=== PATIENT | female | born 1985 | race Caucasian/White ===

== ENCOUNTER 2017-11-05 19:52 | Emergency (ER) | payer SELFPAY ==
[2017-11-05 20:20] VITALS: TEMP 98.7
[2017-11-05] MEDS ORDERED: LACTATED RINGERS 1,000 ML IVS ONE (20:34)
[2017-11-05] MEDS ORDERED: KETOROLAC TROMETHAMINE INJ 30 MG/ML VIAL IV ONE (20:34)
--- NOTE | 2017-11-05 20:58 | ED.PDOC ---
History of Present Illness - General Chief Complaint: Problem Stated Complaint: left lower back pain, painful urination Time Seen by Provider: 11/05/17 20:33 Source: patient Exam Limitations: no limitations - History of Present Illness Initial Comments: Brad Abdullahi 32 y/o female seen in ER today with left flank pain and dark red urine since 5 days ago.No fever,no chills,no nausea/vomiting.Had histoy of kidney stones in the past requiring laparoscopic pyelolithotomy. Timing/Duration: other - 5 days Severity: moderate Improving Factors: nothing Worsening Factors: nothing Associated Symptoms: other - see hpi Allergies/Adverse Reactions: Allergies Promethazine [From Phenergan] Allergy (Verified 11/05/17 20:20) Home Medications: Ambulatory Orders Nitrofurantoin Monohydrate Mac [Macrobid] 100 mg PO BID 10 Days #20 capsule Review of Systems - Review of Systems Constitutional: States: no symptoms reported EENTM: States: no symptoms reported Respiratory: States: no symptoms reported Cardiology: States: no symptoms reported Gastrointestinal/Abdominal: States: no symptoms reported Genitourinary: States: see HPI, hematuria, pain - left flank All other Systems: Reviewed and Negative, No Change from Baseline Past Medical History (General) - Patient Medical History Hx Seizures: No Hx Stroke: No Hx Dementia: No Hx Asthma: No Hx of COPD: No Hx Cardiac Disorders: No Hx Congestive Heart Failure: No Hx Pacemaker: No Hx Hypertension: No Hx Thyroid Disease: No Hx Diabetes: No Hx Gastroesophageal Reflux: No Hx Renal Disease: No Hx Cancer: No Hx of HIV: No Hx Hepatitis C: No Hx MRSA: No Hx Other PMH: Yes - kidney stone Surgical History: other - btl,laparoscopic pyelolithotomy - Vaccination History Hx Tetanus, Diphtheria Vaccination: Yes Hx Influenza Vaccination: No Hx Pneumococcal Vaccination: No - Social History Hx Tobacco Use: Yes Hx Alcohol Use: Yes - social Hx Substance Use: No Hx Substance Use Treatment: No Hx Depression: No Family Medical History - Family History Mother Living Status: Still Living Hx Family Hypertension: Yes Hx Family Diabetes: Yes Hx Family Cancer: Yes - colon Physical Exam - Physical Exam General Appearance: Alert, Comfortable, No apparent distress Eye Exam: bilateral normal Ears, Nose, Throat: hearing grossly normal, normal ENT inspection Neck: non-tender, full range of motion, supple Respiratory: chest non-tender, lungs clear Cardiovascular/Chest: regular rate, rhythm, no murmur Peripheral Pulses: radial,right: 2+, radial,left: 2+ Gastrointestinal/Abdominal: non tender, soft, no organomegaly Back Exam: no vertebral tenderness, CVA tenderness (L) Neurologic: alert, oriented x 3 Skin Exam: normal color, warm/dry Progress - Progress Progress: 11/05/17 22:58 Last Vital Signs Temp 98.7 F 11/05/17 19:59 Pulse 77 11/05/17 19:59 Resp 16 11/05/17 19:59 BP 151/98 11/05/17 19:59 Pulse Ox 99 11/05/17 19:59 - EKG/XRAY/CT CT Ordered: Yes - abd/pelvis-no obstructing stone;renal stone left Departure - Departure Clinical Impression: Left flank pain, Hematuria, microscopic, Nephrolithiasis Urinary tract infection Qualifiers: Urinary tract infection type: site unspecified Hematuria presence: with hematuria Qualified Code(s): N39.0 - Urinary tract infection, site not specified ; R31.9 - Hematuria, unspecified Time of Disposition: 23:02 Disposition: Discharge to Home or Self Care Condition: Good Departure Forms: ED Discharge - Pt. Copy, Patient Portal Self Enrollment Instructions: DI for Kidney Stones, DI for Urinary Tract Infection (UTI) Diet: other - Drink extra fluids Referrals: DANYELL MARLOW [Primary Care Provider] - 1-2 Weeks Prescriptions: Nitrofurantoin Monohydrate Mac [Macrobid] 100 mg PO BID 10 Days #20 capsule Home Medications: Ambulatory Orders Nitrofurantoin Monohydrate Mac [Macrobid] 100 mg PO BID 10 Days #20 capsule Additional Instructions: Follow up with your UROLOGIST in am 11/06/2017 call for your appointment;May take ALEVE(otc) 1-2 tablets am/pm for pain as needed
--- NOTE | 2017-11-05 22:35 | CT ---
EXAM DESCRIPTION: CT ABDOMEN AND PELVIS WITHOUT CONTRAST CLINICAL HISTORY: hematuria COMPARISON: 05/08/2018 TECHNIQUE: CT of the abdomen and pelvis without IV contrast. FINDINGS: Abdomen: The liver has normal size and density. No calcified gallstones. The spleen, pancreas, and adrenal glands are unremarkable. There is a 2.2 cm calculus in the left renal pelvis with a smaller 5 mm calculus in an inferior pole left renal calyx. No hydronephrosis or obstructing ureteral calculi identified. The aorta and IVC have normal caliber and position. No free intraperitoneal air. The stomach and duodenum have normal course. Pelvis: No adnexal masses. The uterus is not enlarged. Urinary bladder is unremarkable. No free pelvic fluid or lymphadenopathy. No dilated loops of large or small bowel. Normal appendix. The visualized lung bases are clear. No destructive bone lesions identified. DLP: 1526.97 mGy-cm IMPRESSION: 1. No obstructing ureteral calculi or hydronephrosis. 2. There is a 2.2 cm calculus in the left renal pelvis that is not significantly changed. This exam was performed according to our departmental dose-optimization program, which includes automated exposure control, adjustment of the mA and/or kV according to patient size and/or use of iterative reconstruction technique. Electronically signed by: Greg Ruvalcaba 11/05/2017 10:35 PM APPLICATIONS MANAGER
[2017-11-05] MEDS ORDERED: MORPHINE SULFATE INJ 10 MG/ML VIAL IV ONE (22:36)
[2017-11-05] MEDS ORDERED: NITROFURANTOIN MONOHYDRATE MAC 100 MG CAP PO ONE (22:59)
[2017-11-05] MEDS ORDERED: NITROFURANTOIN MONO (ER DISP) 100 MG CAP PO ONE (22:59)
[2017-11-05 23:20] VITALS: BP 137/73; O2SAT 100
== END 2017-11-05 23:21 | disposition home or self-care (01) ==
LOC: ER 19:52
DX: N39.0 Urinary tract infection, site not specified (principal); N20.0 Calculus of kidney; Z87.891 Personal history of nicotine dependence
CPT/HCPCS: 36415; 74176; 80053; 81001; 85025; 87086; J1885; J2270; J7120